=== PATIENT | male | born 1955 | race Caucasian/White ===

== ENCOUNTER 2021-07-22 00:36 | Emergency (ER) | payer BC ==
[~2021-07-22] VITALS: Ht 182.9 cm; Wt 78.6 kg
[2021-07-22 02:34] LABS: BASO % 0.2 % (0.0-1.0); EOS # 0.2 10^3/uL (0.0-0.5); EOS % 1.7 % (0.0-3.0); HEMATOCRIT 42.6 % (42.0-52.0); HEMOGLOBIN 14.6 g/dl (13.5-17.5); LYMPH # 1.1 10^3/uL (1.5-5.0); LYMPH % 11.9 % (24.0-44.0); MEAN CORPUSCULAR HEMOGLOBIN 31.9 pg (27.0-33.0); MEAN CORPUSCULAR HGB CONC 34.3 g/dl (32.0-36.5); MONO # 0.9 10^3/uL (0.0-0.8); MONO % 9.8 % (2.0-8.0); NEUTROPHILS # 6.7 10^3/uL (1.5-8.5); NEUTROPHILS % 76.2 % (36.0-66.0); PLATELET COUNT, AUTOMATED 189 10^3/uL (150-450); RED BLOOD COUNT 4.58 10^6/uL (4.30-6.10); WHITE BLOOD COUNT 8.9 10^3/uL (4.0-10.0)
[2021-07-22 03:02] LABS: CK-MB VALUE MASS 2.7 NG/ML (<3.6); MB/CK RELATIVE INDEX 1.62 (< OR =4)
[2021-07-22 03:21] LABS: BLOOD UREA NITROGEN 24 MG/DL (7-18); CALCIUM LEVEL 9.3 MG/DL (8.8-10.2); CARBON DIOXIDE LEVEL 29 MEQ/L (21-32); CHLORIDE LEVEL 103 MEQ/L (98-107); CREATININE FOR GFR 1.01 MG/DL (0.70-1.30); GLOMERULAR FILTRATION RATE > 60.0 (>49); GLUCOSE, FASTING 107 MG/DL (70-100); NT-PRO BNP 106 PG/ML (<125); SODIUM LEVEL 140 MEQ/L (136-145)
[2021-07-22] MEDS ORDERED: METOPROLOL TART 25 MG TABLET PO ONE ×2 (04:15→06:05)
[2021-07-22 05:29] LABS: CK-MB VALUE MASS 2.7 NG/ML (<3.6); MB/CK RELATIVE INDEX 1.73 (< OR =4)
[2021-07-22] MEDS ORDERED: LOPR1TAB6 PO (06:17)
[2021-07-22] MEDS ORDERED: ASPI-255 PO (06:17)
[2021-07-22] MEDS: METOPROLOL 5 MG/5 ML VIAL IV PRN ×3 (06:33→07:05)
[2021-07-22 07:05] VITALS: BP 119/63
[2021-07-22 08:11] VITALS: BP 111/70
== END 2021-07-22 08:16 | disposition home or self-care (01) ==
LOC: M ED 00:36
DX: I48.91 Unspecified atrial fibrillation (principal); R06.02 Shortness of breath; Z79.82 Long term (current) use of aspirin

== ENCOUNTER 2021-10-29 07:32 | Emergency (ER) | payer BC ==
[~2021-10-29] VITALS: Ht 182.9 cm; Wt 79.6 kg
[~2021-10-29 07:32] MED LIST: ASPI-255 PO; LOPR1TAB6 PO
[2021-10-29 08:07] LABS: BASO % 0.5 % (0.0-1.0); EOS # 0.1 10^3/uL (0.0-0.5); EOS % 1.8 % (0.0-3.0); HEMATOCRIT 41.5 % (42.0-52.0); HEMOGLOBIN 14.1 g/dl (13.5-17.5); LYMPH # 0.7 10^3/uL (1.5-5.0); LYMPH % 11.7 % (24.0-44.0); MEAN CORPUSCULAR HEMOGLOBIN 32.1 pg (27.0-33.0); MEAN CORPUSCULAR VOLUME 94.5 fl (80.0-96.0); MONO # 0.5 10^3/uL (0.0-0.8); MONO % 8.6 % (2.0-8.0); NEUTROPHILS # 4.3 10^3/uL (1.5-8.5); NEUTROPHILS % 77.2 % (36.0-66.0); PLATELET COUNT, AUTOMATED 199 10^3/uL (150-450); RED BLOOD COUNT 4.39 10^6/uL (4.30-6.10); WHITE BLOOD COUNT 5.6 10^3/uL (4.0-10.0)
[2021-10-29 08:37] LABS: CK-MB VALUE MASS 3.5 NG/ML (<3.6); MB/CK RELATIVE INDEX 2.45 (< OR =4)
[2021-10-29] MEDS ORDERED: DIGOXIN INJ 0.5 MG/2 ML AMP (J1160) IV STA (08:37)
[2021-10-29] MEDS ORDERED: NS 500 ML IV ONE (08:40)
[2021-10-29 08:50] LABS: BLOOD UREA NITROGEN 25 MG/DL (7-18); CALCIUM LEVEL 8.9 MG/DL (8.8-10.2); CARBON DIOXIDE LEVEL 27 MEQ/L (21-32); CHLORIDE LEVEL 107 MEQ/L (98-107); CREATININE FOR GFR 1.11 MG/DL (0.70-1.30); ETHYL ALCOHOL (ETHANOL) 0.003 % (0.000-0.010); FREE T4 0.66 NG/DL (0.76-1.46); GLOMERULAR FILTRATION RATE > 60.0 (>49); GLUCOSE, FASTING 106 MG/DL (70-100); MAGNESIUM LEVEL 1.7 MG/DL (1.8-2.4); NT-PRO BNP 338 PG/ML (<125); POTASSIUM SERUM 4.7 MEQ/L (3.5-5.1); SODIUM LEVEL 137 MEQ/L (136-145)
[2021-10-29] MEDS ORDERED: MAG SULF 1GM/100ML (MAG RUN) 1 GM in IV 1 EA IV ONE (09:10)
[2021-10-29] MEDS ORDERED: FLECAINIDE 50MG TABLET PO ONE (12:00)
[2021-10-29 13:44] VITALS: BP 109/68
== END 2021-10-29 13:49 | disposition home or self-care (01) ==
LOC: M ED 07:32
DX: I48.0 Paroxysmal atrial fibrillation (principal)
CPT/HCPCS: 71045; 80048; 82077; 82550; 82553; 83735; 83880; 84439; 84443; 84484; 85025; 93005; 93041; 94760; 96365; 96366; 96375; 99285; J1160; J3475